=== PATIENT | male | born 1935 | race Caucasian/White ===

== ENCOUNTER 2023-01-15 01:27 | Inpatient (IN) | payer MEDICARE ==
[~2023-01-15] VITALS: Ht 170.2 cm; Wt 88.5 kg
--- NOTE | 2023-01-15 01:20 | NUR ---
RN NOTE RECEIVED ER DIRECT ADMISSION REPORT FROM SANDRA MURCIA ([facility]). ALL PERTINENT ADMISSION INFO REGARDING PT NOTED. WILL WAIT FOR PT TO BE TRANSFERRED TO UNIT AND ADDRESS NEEDS ACCORDINGLY. FASHION ILLUSTRATOR MADE AWARE.
--- NOTE | 2023-01-15 01:45 | NUR ---
RN NOTE RECEIVED PT FROM ER VIA GURRASHID ACCOMPANIED BY 2 ER STAFF AND TRANSFERRED TO BED VIA 2-3 PERSON ASSIST. PT IS A/OX2-3;ON ROOM AIR WITH RESPIRATIONS EVEN AND UNLABORED. COMPREHENSIVE PHYSICAL ASSESSMENT AND PATIENT CARE DONE. SULTANA DE SOUZA AWARE OF PT'S ADMISSION ; AWAITING FOR MD ORDERS. PT FAMILY AT BEDSIDE. CALL LIGHT WITHIN REACH, SAFETY MEASURES IMPLEMENTED, WILL CONTINUE MONITOR AND ASSESS THROUGHOUT THE SHIFT. WILL CARRY OUT MD ORDERS ACCORDINGLY. REED OR WIND INSTRUMENT REPAIRER MADE AWARE. Addendum: 01/15/23 at 0357 by BHAVIK RODRIGUEZ RN PT ON HEPARIN DRIP @1200U/HR BUT WAS HELD BEFORE TRANSFERRED OUT FROM [facility].
[2023-01-15 02:00] VITALS: BP 163/79
[2023-01-15] MEDS ORDERED: Z GUARD REMEDY 4 OZ OINT TP PRN (02:00)
[2023-01-15] MEDS ORDERED: ONDANSETRON HCL/PF 4 MG/2 ML VIAL IVP PRN (02:00)
[2023-01-15] MEDS ORDERED: MAG HYDROX/AL HYDROX/SIMETH 30 ML UDC PO PRN (02:00)
[2023-01-15] MEDS ORDERED: ZOLPIDEM TARTRATE 5 MG TABLET PO PRN (02:00)
[2023-01-15] MEDS ORDERED: MAGNESIUM HYDROXIDE 30 ML UDC PO PRN (02:00)
[2023-01-15] MEDS: IV D5/0.45 NACL 1,000 ML IV PRN ×2 (02:49→23:08)
[2023-01-15 02:55] LABS: EOSINOPHILS % (AUTO) 22.5 % (0.0-6.0); HEMATOCRIT 31 % (39-51); HEMOGLOBIN 9.9 g/dL (13.5-17.5); LYMPHOCYTES # (AUTO) 3.1 K/uL (0.8-4.8); LYMPHOCYTES % (AUTO) 30.9 % (20.0-44.0); MEAN CORPUSCULAR HGB CONC 32 g/dl (31.0-36.0); MEAN CORPUSCULAR VOLUME 65 fL (80-96); MONOCYTES # (AUTO) 0.4 K/uL (0.1-1.30); MONOCYTES % (AUTO) 3.6 % (2.0-12.0); NEUTROPHILS # (AUTO) 4.4 K/uL (1.8-8.9); PLATELET COUNT (AUTO) 268 K/uL (150-450); RED BLOOD CELL COUNT(AUTO) 4.77 MIL/uL (4.5-6.0); WHITE BLOOD COUNT (AUTO) 10.2 K/uL (4.3-11.0)
[2023-01-15 03:02] LABS: CALCIUM, SERUM 9.3 mg/dL (8.5-10.1); CARBON DIOXIDE 30 mmol/L (21-32); CHLORIDE 106 mmol/L (98-107); GLUCOSE 175 mg/dL (74-106); POTASSIUM 3.4 mmol/L (3.5-5.1); SODIUM SERUM 142 mmol/L (136-145); UREA NITROGEN, BLOOD 14 mg/dL (7-18)
--- NOTE | 2023-01-15 03:18 | NUR ---
RN NOTE CRITICAL LAB RECEIVED (S/W JIM) TROPONIN LEVEL 2015. RN ACKNOWLEDGED. WILL NOTIFY SULTANA DE SOUZA. NOTIFIED DR. BARNETT.
--- NOTE | 2023-01-15 03:30 | NUR ---
RN NOTE APTT RESULT CAME OUT 24.7; NOTIFIED SULTANA DE SOUZA (DR. BARNETT) PT STARTED HEPARIN DRIP IN [facility] DOSE RATE OF 1200U/HR. ASKED SULTANA IF TOO CONTINUE DOSE RATE @1200 OR REDO PER HEPARIN ACS PROTOCOL. AWAITING FOR RESPONSE. Addendum: 01/15/23 at 0356 by BHAVIK RODRIGUEZ RN PT'S HEPARIN DRIP WAS HELD BEFORE DC AND TRANSFERRED OUT FROM [facility]. Addendum: 01/15/23 at 0440 by BHAVIK RODRIGUEZ RN CALLBACK RECEIVED FROM SULTANA DE SOUZA () RESTART HEPARIN BASED ON HEAPRIN ACS PROTOCOL. ALSO GAVE ORDER FOR HALDOL 2MG ONE TIME ORDER FOR EXTREME ANXIETY AND RESTLESSNESS AND ATIVAN 2MG Q6H PRN. RN ACKNOWLEDGED. SCALLOPER MADE AWARE.
[2023-01-15 04:00] VITALS: BP 139/69
--- NOTE | 2023-01-15 04:40 | NUR ---
"RN NOTE APTT 24.7; PER HEPARIN DOSING PROTOCOL >95KG | APTT <35 : BOLUS 6000U THEN INCREASE RATE BY 300U/HR MAKING DOSE RATE AT 1500U/HR. WILL CARRY OUT. Addendum: 01/15/23 at 0456 by BHAVIK RODRIGUEZ RN THEN REPEAT APTT AFTER 6HOURS"
[2023-01-15] MEDS ORDERED: LORAZEPAM INJ 2 MG/ML VIAL IV PRN (05:00)
[2023-01-15] MEDS ORDERED: HALOPERIDOL LACTATE INJ 5 MG/ML VIAL IM ONE (05:00)
[2023-01-15] MEDS ORDERED: HEPARIN SODIUM, PORCINE 5000 UNITS/1 ML VIAL IV ONE (05:30)
--- NOTE | 2023-01-15 06:00 | NUR ---
RN NOTE STARTED HEPARIN DRIP PER ACS PROTOCOL @1500U/HR; REPEAT APTT AGTER 6HRS (12NOON).
[2023-01-15] MEDS ORDERED: HEPARIN INFUSION/D5W 500 ML IV ONE (06:02)
[2023-01-15] MEDS: HEPARIN INFUSION/D5W 500 ML IV PRN ×2 (06:09→23:27)
--- NOTE | 2023-01-15 06:53 | NUR ---
RN NOTE PATIENT REMAINS IN ROOM IN NO SIGNS OF RESPIRATORY DISTRESS, PATIENT STILL ON ROOM AIR; WITH 02 SAT >95% SP02. STILL ON NPO. SR-ST ON MONITOR WITHIN THE SHIFT. ON HEPARIN DRIP @1500U/HR; NEXT APTT 12NOON. SAFETY MEASURES IMPLEMENTED, BED IN LOWEST POSITION, LOCKED, SIDE RAILS UP, CALL LIGHT WITHIN REACH. ALL NEEDS AND ORDERS ADDRESSED DURING THE SHIFT. IV ACCESS MAINTAINED INTACT, SECURED AND FLUSHING WELL. ALL DUE MEDS GIVEN ORDERED & SCHEDULED ; PATIENT TOLERATED WELL. RESTRAINTS ON PER PROTOCOL. PATIENT KEPT CLEAN AND COMFORTABLE WITHIN THE SHIFT. PATIENT ENDORSED TO INCOMING SHIFT RN WITH STABLE VITAL SIGN AND FOR CONTINUITY OF CARE.
[2023-01-15 08:00] VITALS: BP 163/78
--- NOTE | 2023-01-15 08:00 | NUR ---
CORD CUTTER OPENING NOTES RECEIVED PATIENT IN BED AWAKE, DAUGHTER AT THE BEDSIDE, NTOED PATIENT RESTLESS, WITH BILATERAL WRIST RESTRAINT, CHECK SKIN PER PROTOCOL. PATIENT REMAINS IN ROOM IN NO SIGNS OF RESPIRATORY DISTRESS, PATIENT STILL ON ROOM AIR; WITH 02 SAT >95% SP02. STILL ON NPO. SR-ST ON MONITOR. NOTED ON HEPARIN DRIP @1500U/HR; NEXT APTT 12NOON. SAFETY MEASURES IMPLEMENTED, BED IN LOWEST POSITION, LOCKED, SIDE RAILS UP, CALL LIGHT WITHIN REACH. IV ACCESS MAINTAINED INTACT, SECURED AND FLUSHING WELL. PATIENT KEPT CLEAN AND COMFORTABLE WITHIN THE SHIFT. PLAN OF CARE CONTINUE.
[2023-01-15] MEDS: POTASSIUM CL. PREMIX PERIPHER. 50 ML IV SCH ×2 (09:21→10:35)
[2023-01-15] MEDS: PANTOPRAZOLE 40 MG VIAL IV SCH (09:21)
--- NOTE | 2023-01-15 09:30 | NUR ---
DR. KUMAR AT THE BEDSIDE, INFORMED OF THE PATIENT'S BLOOD PRESSURE WITH ORDER METOPROL 5MG IV Q6HR PRN, NOTED AND CARRIED OUT.
--- NOTE | 2023-01-15 09:30 | NUR ---
NOTED ON AND OFF JUNCTION RHYTHM DR. CAPELLAN MADE AWARE, NO NEW ORDER.
[2023-01-15] MEDS ORDERED: HALOPERIDOL LACTATE INJ 5 MG/ML VIAL IM PRN (10:00)
[2023-01-15] MEDS ORDERED: METOPROLOL TARTRATE INJ 5 MG/5 ML AMPUL IVP PRN (10:00)
--- NOTE | 2023-01-15 10:30 | NUR ---
DR. CAPELLAN AT THE BEDSIDE, SEEN PATIENT AND TALKED TO THE FAMILY.
[2023-01-15] MEDS ORDERED: NITR0.4T48 SL (10:56)
[2023-01-15] MEDS ORDERED: METF-440 PO (10:56)
[2023-01-15] MEDS ORDERED: EZET10TA16 PO (10:56)
[2023-01-15] MEDS ORDERED: LOSA1TAB39 PO (10:56)
[2023-01-15] MEDS ORDERED: METO25TA3 PO (10:56)
[2023-01-15] MEDS ORDERED: DEXTROSE 50%-WATER 50 ML DISP.SYRIN IV PRN (11:00)
[2023-01-15] MEDS: BLOOD SUGAR DIAGNOSTIC 1 EACH STRIP VI SCH ×3 (11:21→21:48)
--- NOTE | 2023-01-15 11:43 | NUR ---
CORDWAINER/MED RECON HOME MEDICATION INFORMATION UPDATED, INFO. OBTAINED FROM THE FAMILY. PER FAMILY PATIENT DOESN'T TAKE ANY OF THE MEDICATIONS PRESCRIBED SINCE LAST YEAR (PATIENT NON-COMPLIANT). PRIMARY RN MADE AWARE.
[2023-01-15 12:00] VITALS: BP 160/86
--- NOTE | 2023-01-15 13:15 | NUR ---
PATIENT SEEN BY DR. KEENAN WITH RECOMMENDATION TO INFORMED DR. 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
--- NOTE | 2023-01-15 13:20 | NUR ---
CALLED JOSÉ AND INFORMED ABOUT DR. KEENAN'S RECOMMENDATION WITH ORDER TO PUT NEUROCONSULT.NOTED AND CARRIED OUT, INFORMED DR. MONROY
[2023-01-15 16:00] VITALS: BP 155/80
--- NOTE | 2023-01-15 16:30 | NUR ---
PATIENT IS MORE ALERT AND AWAKE, TRIED APPLE SAUCE AND WATER PATIENT ABLE TO SWALLOW WITHOUT COUGHING, PATIENT PUT ON PUREED DIET.
[2023-01-15] MEDS ORDERED: QUETIAPINE FUMARATE 25 MG TABLET PO PRN (17:30)
--- NOTE | 2023-01-15 18:40 | NUR ---
NEW MEDIA STRATEGIST CLOSING NOTES NOTES PATIENT ALERT AND RESPONSIVE, DAUGHTER AT THE BEDSIDE, NOTED PATIENT RESTLESS, WITH BILATERAL WRIST RESTRAINT, CHECK SKIN PER PROTOCOL. PATIENT REMAINS IN ROOM IN NO SIGNS OF RESPIRATORY DISTRESS, PATIENT STILL ON ROOM AIR; WITH 02 SAT >95% SP02. 104 SR-ST ON MONITOR. NOTED ON HEPARIN DRIP @1500U/HR; SAFETY MEASURES IMPLEMENTED, BED IN LOWEST POSITION, LOCKED, SIDE RAILS UP, CALL LIGHT WITHIN REACH. IV ACCESS MAINTAINED INTACT, SECURED AND FLUSHING WELL. PATIENT KEPT CLEAN AND COMFORTABLE WITHIN THE SHIFT. PLAN OF CARE CONTINUE. Addendum: 01/15/23 at 1845 by HUZMA HADDAD LVN [address] WITH FIRST DEGREE AVB
[2023-01-15] MEDS: INSULIN REGULAR, HUMAN 100 UNIT/ML 3 ML VIAL SQ PRN ×2 (18:48→21:21)
--- NOTE | 2023-01-15 18:48 | NUR ---
INSULIN DID NOT ADMINISTER DUE TO PATIENT ONLY ATE 5 % OF THE MEAL AND DAUGHTER AT THE BEDSIDE REFUSED. EDUCATE THE IMPORTANCE OF GIVING THE INSULIN X3, PATIENT'S FAMILY STILL REFUSED.
--- NOTE | 2023-01-15 19:21 | NUR ---
RN OPENING NOTE; RECEIVED PT IN BED AWAKED AOX2-3 WITH CONFUSION,COMBATIVE, FAMILY AT BEDSIDE,ON RM AIR ANKUR WELL SAT 97%,NO SIGN SOB/DISTRESS NOTED,NO COMPLAIN OF PAIN/DISCOMFORT AT THIS TIME,IV ACCESS GIOVANY ML,LAC 20G SL,PATENT AND INTACT,RESTRAIN IN PLACE WITH GOOD CIRCULATION,SAFETY MEASURE IN PLACE,CALL LIGHT WITHIN REACH,WILL CONTINUE TO MONITOR.
[2023-01-15 20:00] VITALS: BP 165/79
[2023-01-15] MEDS: METOPROLOL TARTRATE 25 MG TABLET PO SCH (21:00)
[2023-01-16] VITALS (7 sets, daily range): BP systolic 143–200; BP diastolic 66–120
--- NOTE | 2023-01-16 02:36 | NUR ---
RN NOTE; PATIENT VERY ANXIOUS AND COMBATIVE,INFORM DOC,Won BARNETTWITH A NEW ORDER ATIVAN 1MG IV Q6H PRN.CARRIED OUT.
[2023-01-16] MEDS: LORAZEPAM INJ 2 MG/ML VIAL IV PRN (02:49)
--- NOTE | 2023-01-16 06:19 | NUR ---
RN OPENING NOTE; PT IN BED AWAKED AOX1 CONFUSED,COMBATIVE, FAMILY AT BEDSIDE,ON RM AIR ANKUR WELL SAT 96%,NO SIGN SOB/DISTRESS NOTED,NO SIGN OF PAIN/DISCOMFORT DURING SHIFT,DUE MEDS GIVEN ORDER,ALL NEEDS ATTENDED,IV ACCESS GIOVANY ML,LAC 20G SL,PATENT AND INTACT,RESTRAIN IN PLACE WITH GOOD CIRCULATION,SAFETY MEASURE IN PLACE,CALL LIGHT WITHIN REACH,WILL ENDORSED TO NEXT SHIFT.
--- NOTE | 2023-01-16 07:00 | NUR ---
telegraphic typewriter operator OPENING NOTE; PT IN BED AWAKED AOX1 CONFUSED,COMBATIVE, FAMILY AT BEDSIDE,ON RM AIR ANKUR WELL SAT 96%,NO SIGN SOB/DISTRESS NOTED,NO SIGN OF PAIN/DISCOMFORT DURING SHIFT,IV ACCESS GIOVANY ML,LAC 20G HEPARIN DRIP RUNNING AT 1500 unit/hr, and D5 1/2 NS RUNNING AT 75 ML/HRSL,PATENT AND INTACT,RESTRAIN IN PLACE WITH GOOD CIRCULATION,SAFETY MEASURE IN PLACE,CALL LIGHT WITHIN REACH,WILL CONTINUE TO MONITOR
[2023-01-16] MEDS: BLOOD SUGAR DIAGNOSTIC 1 EACH STRIP VI SCH ×4 (08:12→21:32)
[2023-01-16] MEDS: PANTOPRAZOLE 40 MG VIAL IV SCH (08:14)
[2023-01-16] MEDS: QUETIAPINE FUMARATE 25 MG TABLET PO SCH ×3 (08:14→17:06)
[2023-01-16] MEDS: METOPROLOL TARTRATE 25 MG TABLET PO SCH ×2 (08:15→21:31)
[2023-01-16 08:17] LABS: BASOPHILS # (AUTO) 0.1 K/uL (0.0-0.2); BASOPHILS % (AUTO) 0.6 % (0.0-2.0); EOSINOPHILS % (AUTO) 1.2 % (0.0-6.0); HEMATOCRIT 33 % (39-51); HEMOGLOBIN 10.3 g/dL (13.5-17.5); LYMPHOCYTES # (AUTO) 1.5 K/uL (0.8-4.8); LYMPHOCYTES % (AUTO) 12.2 % (20.0-44.0); MEAN CORPUSCULAR HGB CONC 31 g/dl (31.0-36.0); MEAN CORPUSCULAR VOLUME 67 fL (80-96); MONOCYTES # (AUTO) 1.3 K/uL (0.1-1.30); MONOCYTES % (AUTO) 10.9 % (2.0-12.0); NEUTROPHILS % (AUTO) 75.1 % (43.0-81.0); PLATELET COUNT (AUTO) 265 K/uL (150-450); RED BLOOD CELL COUNT(AUTO) 4.97 MIL/uL (4.5-6.0)
[2023-01-16] MEDS: INSULIN REGULAR, HUMAN 100 UNIT/ML 3 ML VIAL SQ PRN ×4 (08:26→23:44)
[2023-01-16 08:43] LABS: CALCIUM, SERUM 9.1 mg/dL (8.5-10.1); CREATININE 1.1 mg/dL (0.6-1.3); MAGNESIUM 1.8 mg/dL (1.8-2.4); PHOSPHORUS 3.1 mg/dL (2.5-4.9); POTASSIUM 3.7 mmol/L (3.5-5.1)
[2023-01-16 08:50] LABS: THYROID STIMULATING HORMONE 1.647 uIU/mL (0.358-3.74)
--- NOTE | 2023-01-16 08:53 | NUR ---
rn notes: spoke to DR Cardenas BP no iv bp meds also pt is very sleepy,agustin pena,dr Cardenas aware
--- NOTE | 2023-01-16 09:00 | NUR ---
RN NOTES: PTT 49.8 CONTINUE SAME DOSE OF HEPARIN DRIP PER PROTOCOL
--- NOTE | 2023-01-16 10:00 | NUR ---
notified dr Rodarte troponin [id number] made aware with no new order
[2023-01-16] MEDS: IV D5/0.45 NACL 1,000 ML IV PRN (15:01)
[2023-01-16] MEDS: HEPARIN INFUSION/D5W 500 ML IV PRN (16:48)
[2023-01-16] MEDS: CYANOCOBALAMIN 1,000 MCG/ML VIAL IM SCH (17:07)
--- NOTE | 2023-01-16 18:50 | NUR ---
MUD ANALYSIS SUPERVISOR CLOSING NOTES: PATIENT ALERT AND RESPONSIVE, FAMILY AT THE BEDSIDE, NOTED PATIENT , WITH BILATERAL WRIST RESTRAINT, CHECK SKIN PER PROTOCOL. PATIENT REMAINS IN ROOM IN NO SIGNS OF RESPIRATORY DISTRESS, PATIENT STILL ON ROOM AIR; WITH 02 SAT >95% SP02.SR ON MONITOR. NOTED ON HEPARIN DRIP @1500U/HR; SAFETY MEASURES IMPLEMENTED, BED IN LOWEST POSITION, LOCKED, SIDE RAILS UP, CALL LIGHT WITHIN REACH. IV ACCESS MAINTAINED INTACT, SECURED AND FLUSHING WELL. PATIENT KEPT CLEAN AND COMFORTABLE, WILL ENDORSE TO OFFICE MACHINES WIRER RN FOR FRANCO
--- NOTE | 2023-01-16 19:50 | NUR ---
TRAP OPERATOR OPENING NOTE RECEIVED PT IN BED AWAKE, WITH SON AT BEDSIDE. PT A/O X1, CONFUSED, AND COMBATIVE. ON ROOM AIR, AND TOLERATING RA WELL SAT 96%. NO SIGN OF SOB, AND RESPIRATORY DISTRESS NOTED. NO COMPLAIN OF PAIN OR DISCOMFORT AT THIS TIME. IV ACCESS TO RIGHT UA ML, AND LEFT AC 20G SL, IV PATENT AND INTACT. PT HAS RESTRAINTS IN PLACE WITH GOOD CIRCULATION. SAFETY MEASURES IN PLACE: BED IN LOW POSITION, CALL LIGHT WITHIN REACH, SR UP X2. WILL CONTINUE TO MONITOR PT.
[2023-01-16] MEDS: ACETAMINOPHEN 325 MG TABLET PO PRN (22:17)
--- NOTE | 2023-01-16 22:17 | NUR ---
HOSE HANDLER NOTE PT HAS PAIN TO LEFT KNEE. TYLENOL IS GIVEN TO PT.
--- NOTE | 2023-01-16 23:45 | NUR ---
STUNTMAN NOTE PT'S BS: 140. PT'S DAUGHTER BENI REFUSED 2U OF INSULIN TO BE ADMINISTERED TO PT.
[2023-01-17] VITALS: BP 159/83
[2023-01-17 04:00] VITALS: BP 160/83
[2023-01-17] MEDS: LORAZEPAM INJ 2 MG/ML VIAL IV PRN (04:09)
--- NOTE | 2023-01-17 04:10 | NUR ---
RN NOTE PT IS RESTLESS, AGITATED. ATIVAN ADMINISTERED TO PT.
[2023-01-17] MEDS: IV D5/0.45 NACL 1,000 ML IV PRN (04:54)
--- NOTE | 2023-01-17 06:55 | NUR ---
CLOTHES IRONER OPENING NOTE LEFT PT IN BED AWAKE, WITH DAUGHTERS AT BEDSIDE. PT A/O X1, CONFUSED, AND COMBATIVE. ON ROOM AIR, AND TOLERATING RA WELL SAT 96%. NO SIGN OF SOB, AND RESPIRATORY DISTRESS NOTED. NO COMPLAIN OF PAIN OR DISCOMFORT AT THIS TIME. IV ACCESS TO RIGHT UA ML, IV PATENT AND INTACT. PT HAS RESTRAINTS IN PLACE WITH GOOD CIRCULATION. SAFETY MEASURES IN PLACE: BED IN LOW POSITION, CALL LIGHT WITHIN REACH, SR UP X2. WILL ENDORSE PT TO AM SHIFT NURSE FOR FRANCO.
--- NOTE | 2023-01-17 07:10 | NUR ---
RN OPENING NOTES AM SHIFT RECEIVED PT ASLEEP, IN BED ON POSTERIOR SIDE, aPTT READING IS 55.3 NO CHANGE OF HEPARIN NOTED AT THIS TIME PER MD ORDERS AND DOSING ORDERS, PT A&0 X 1, FAMILY PRESENT & DAUGHTERS AT BEDSIDE, SOME CONFUSION NOTED UNABLE TO FOLLOW SIMPLE COMMANDS, RELAXED PEACHFUL AND SLEEPING AT THIS TIME, ON ROOM AIR, TOLERATING RA WELL SAT 98%. NO SIGN OF SOB, NO DISTRESS NOTED, PT IS CALM , NO COMPLAIN OF PAIN OR DISCOMFORT AT THIS TIME. IV ACCESS TO RIGHT UA ML, IV PATENT AND INTACT. PT HAS RESTRAINTS IN PLACE WITH GOOD CIRCULATION NOTED ON ALL EXTREMETIES CAP REFILL IS LESS THAN 3. SAFETY MEASURES IN PLACE: BED IN LOW POSITION, ALL BED WHEELS LOCKED, CALL LIGHT WITHIN REACH, WILL MONITOR CLOSELY BS = 170 INSULIN GIVEN PER SLIDING SCALE.
[2023-01-17 08:00] VITALS: BP 158/82
[2023-01-17] MEDS: INSULIN REGULAR, HUMAN 100 UNIT/ML 3 ML VIAL SQ PRN (08:09)
[2023-01-17] MEDS: BLOOD SUGAR DIAGNOSTIC 1 EACH STRIP VI SCH ×4 (08:10→21:52)
[2023-01-17 08:19] LABS: CALCIUM, SERUM 8.7 mg/dL (8.5-10.1); POTASSIUM 3.5 mmol/L (3.5-5.1)
[2023-01-17] MEDS: PANTOPRAZOLE 40 MG VIAL IV SCH (08:20)
[2023-01-17] MEDS: QUETIAPINE FUMARATE 25 MG TABLET PO SCH ×4 (08:20→20:27)
[2023-01-17] MEDS: CYANOCOBALAMIN 1,000 MCG/ML VIAL IM SCH (08:20)
[2023-01-17] MEDS: METOPROLOL TARTRATE 25 MG TABLET PO SCH ×2 (08:21→20:44)
[2023-01-17 08:25] LABS: ALBUMIN 3.7 g/dL (3.4-5.0); BILIRUBIN,TOTAL 1.8 mg/dL (0.2-1.0); TOTAL PROTEIN, SERUM 5.9 g/dL (6.4-8.2)
[2023-01-17] MEDS ORDERED: PANTOPRAZOLE 40 MG/PACK PACK PO SCH (09:00)
--- NOTE | 2023-01-17 10:27 | NUR ---
RN NOTES FAMILY REFUSED TO SIGN CONSENT FOR THE MRI, EDUCATED FAMILY AND CONSEQUENCES OF NOT AUTHORIZING PROCEDURE FAMILY STILL REFUSED, NEUROLOGIST AND MD EDUCATED FAMILY ON IMPORTANCE OF CARE MANAGEMENT AND REASONING FOR ALL MEDICATION ORDERS, LAB ORDERS , MRI , SCANS, AND CARE HOWEVER FAMILY STILL REFUSED , WILL CONTINUE TO MONITOR PATIENT AT THIS TIME, HEP DRIP INTACT IV SITE INTACT, RESTRAINTS IN PLACE, PT TURNED AND REPOSITIONED WITH PILLOW UNDER LEFT KNEE AND COLD PACK THERAPY FOR ACHE AND SWOLLENESS NOTED FROM THE PREVIOUS FALL.
[2023-01-17] MEDS: HEPARIN INFUSION/D5W 500 ML IV PRN (10:54)
[2023-01-17] MEDS ORDERED: HALOPERIDOL LACTATE INJ 5 MG/ML VIAL IM PRN (11:00)
--- NOTE | 2023-01-17 11:44 | NUR ---
PER RN NICK, PT REFUSING EXAM
[2023-01-17 12:00] VITALS: BP 149/68
[2023-01-17] MEDS: GLUCERNA SHAKE 237 ML CAN PO SCH ×2 (12:32→17:05)
[2023-01-17] MEDS: ACETAMINOPHEN 325 MG TABLET PO PRN ×2 (13:54→20:27)
[2023-01-17] MEDS: HYDROCODONE/APAP 5/325MG TABLET PO PRN (13:54)
[2023-01-17 16:00] VITALS: BP 136/64
--- NOTE | 2023-01-17 18:44 | NUR ---
RN NOTES FAMILY WITH PT DURING ENTIRE SHIFT, PT HAS PAIN IN LEFT KNEE, GIVEN ICE PACKS, PILLOWS, AND PAIN MEDICATION EFFECTIVE, FAMILY REFUSED INSULIN SHOT FOR BS = 161 LEVEL EDUCATED CONSEQUENCES, ENCOURAGED PT TO EAT DINNER, REPOSITIONED PT FOR COMFORT, ALL SAFETY MEASURES IN PLACE ALL BED WHEELS LOCKED, BED LOW TO FLOOR CALL LIGHT IN REACH AND FAMILY KNOWS HOW TO USE IT AND MAKES ALL NEEDS KNOWN.
--- NOTE | 2023-01-17 19:30 | NUR ---
MACHINE APPLICATOR CEMENTER OPENING NOTE RECEIVED PATIENT IN BED, WITH HOB ELEVATED, ALERT AND ORIENTED TO SELF, WITH FAMILY AT BEDSIDE. AFEBRILE AND NOT IN ANY FORM OF ACUTE DISTRESS. BREATHING EVEN AND NON LABORED. NO C/O PAIN OR DISCOMFORT AT THIS TIME. ON TELE MONITORING. WITH IV ACCESS ON GIOVANY MIDLINE RUNNING WITH D5 1/2NS AT 75ML/HR AND HEPARIN DRIP OF 1500U/HR., NO ACTIVE BLEEDING NOTED. WITH BILATERAL SOFT WRIST RESTRAINTS,NOTED WITH INTACT SKIN AND GOOD CIRCULATION. SAFETY MEASURES IN PLACE. KEPT BED IN LOCKED AND IN LOW POSITION. SIDE RAILS UP X2. CALL LIGHT WITHIN EASY REACH.
[2023-01-17 20:00] VITALS: BP 137/75
[2023-01-17] MEDS: *INSULIN REGULAR(HUMULIN R)HUM 100 UNIT/ML VIAL SQ PRN (21:54)
[2023-01-18] VITALS: BP 137/75
[2023-01-18] MEDS: HEPARIN INFUSION/D5W 500 ML IV PRN ×2 (02:58→20:47)
[2023-01-18 04:00] VITALS: BP 159/71
--- NOTE | 2023-01-18 06:30 | NUR ---
PROFESSOR SCULPTURE CLOSING NOTE PATIENT IN BED, WITH HOB ELEVATED, ASLEEP BUT EASY TO AROUSE, WITH SON AND PRIVATE NURSE AT BEDSIDE. AFEBRILE AND NOT IN ANY FORM OF ACUTE DISTRESS. BREATHING EVEN AND NON LABORED. NO C/O PAIN OR DISCOMFORT THROUGHOUT THE SHIFT. ON TELE MONITORING WITH CURRENT READING OF ST 104 WITH OCCASIONAL PVCS AND 1ST DEGREE AV BLOCK. WITH IV ACCESS ON GIOVANY MIDLINE RUNNING WITH D5 1/2NS AT 75ML/HR AND HEPARIN DRIP OF 1500U/HR., NO ACTIVE BLEEDING NOTED. WITH BILATERAL SOFT WRIST RESTRAINTS,NOTED WITH INTACT SKIN AND GOOD CIRCULATION. MONITORED FOR ANY S/SX. OF HYPO/HYPERGLYCEMIA. MEDICATED ORDERED. SAFETY MEASURES IN PLACE. KEPT BED IN LOCKED AND IN LOW POSITION. SIDE RAILS UP X2. CALL LIGHT WITHIN EASY REACH. ALL NURSING NEEDS ATTENDED. ENDORSED TO INCOMING SHIFT FOR CONTINUITY OF CARE.
[2023-01-18] MEDS: BLOOD SUGAR DIAGNOSTIC 1 EACH STRIP VI SCH ×4 (06:45→20:49)
[2023-01-18] MEDS: INSULIN REGULAR, HUMAN 100 UNIT/ML 3 ML VIAL SQ PRN ×3 (06:47→21:14)
[2023-01-18 08:00] VITALS: BP 164/98
[2023-01-18] MEDS: GLUCERNA SHAKE 237 ML CAN PO SCH ×3 (08:00→16:57)
[2023-01-18] MEDS: ACETAMINOPHEN 325 MG TABLET PO PRN (09:23)
[2023-01-18] MEDS: QUETIAPINE FUMARATE 25 MG TABLET PO SCH ×4 (09:35→20:48)
[2023-01-18] MEDS: HYDROCODONE/APAP 5/325MG TABLET PO PRN (09:38)
[2023-01-18] MEDS: CYANOCOBALAMIN 1,000 MCG/ML VIAL IM SCH (09:38)
[2023-01-18] MEDS: METOPROLOL TARTRATE 25 MG TABLET PO SCH ×2 (09:39→20:48)
[2023-01-18] MEDS: PANTOPRAZOLE 40 MG/PACK PACK PO SCH (09:39)
--- NOTE | 2023-01-18 12:36 | NUR ---
RN NOTES FAMILY REQUESTING TO MANAGE PAIN BY HOLISTIC MEASURES AND TO TRY TO USE OTHER METHODS TO MANAGE THE PAIN IN HIS LEFT KNEE, ICE PACKS PROVIDED, REPOSITIONING OFTEN, PILLOWS ADMIN TO HELP ELEVATE THE KNEE, SITE IS INFLAMED , RED, AND SWOLLEN, TENDER TO TOUCH, ADVISED TO KEEP ANY PRESSURE & WEIGHT OFF OF KNEE AT THIS TIME, PT CLEANED BRIDGETTE AREA AND REPOSITIONED FOR COMFORT, AFTER EDUCATING FAMILY ON PAIN MEDICATIONS AUTHORIZED TO GIVE THE NORCO AND AM MEDICATIONS, PO WITH APPLE SAUCE, NO ASPIRATION NOTED HOB LIFTED TO A SEMI FOWLERS POSITION AND PT ABLE TO SWALLOW PILLS WHOLE WITH APPLE SAUCE, NORCO EFFECTIVE AND PT RESTING PEACEFULLY WITH ONE DAUGHTER AT BEDSIDE AT THIS TIME. ALL SAFETY MEASURES IN PLACE, BED LOW TO FLOOR, ALL WHEELS ARE LOCKED, MONITORING CLOSELY FOR ANY CHANGES OF CONDITION.
--- NOTE | 2023-01-18 12:40 | NUR ---
RN NOTES DUE TO PATIENT BEING COMFORTABLE AND SEMI ASLEEP FAMILY IS REQUESTING TO REFUSE THE VS AND THE BS TO BE TAKEN AT THIS TIME BETWEEN 11;30 AM AND AT THIS TIME, WILL RESPECT WISHES AND TAKE THE VS AND THE BS IN APPROX 30 MINUTES TO ALLOW PT TO REST UP.
[2023-01-18 16:00] VITALS: BP 164/98
--- NOTE | 2023-01-18 18:38 | NUR ---
RN CLOSING NOTES FOR DAY SHIFT PATIENT AWAKE A/O X 2 IN BED, HOB ELEVATED SEMI FOWLERS, BOTH DAUGHTERS AT BED SIDE, AFEBRILE, NO SOB, NO ACUTE DISTRESS, RESP ARE AT 19, BREATHING IS EVEN & UN-LABORED. ON TELE MONITORING WITH CURRENT READING OF ST 98 , OCCASIONAL PVCS NOTED AND 1ST DEGREE AV BLOCK. IV ACCESS ON GIOVANY MIDLINE RUNNING WITH D5 1/2NS AT 75ML/HR AND HEPARIN DRIP OF 1500U/HR., NO ACTIVE BLEEDING NOTED, NO ADVERSE SIDE EFFECTS NOTED, BI-LATERAL SOFT WRIST RESTRAINTS, NOTED WITH INTACT SKIN & GOOD CIRCULATION LESS THAN 3 SECONDS ON ALL EXTREMETIES, PT RESPONDS TO COUCH AND ENJOYS HOLDING OF THE HAND, MONITORED FOR ANY S/SX. OF HYPO/HYPERGLYCEMIA NONE NOTED ALL BS TAKEN AND INSULIN GIVEN ACCORDING THE SLIDING SCALE, SAFETY MEASURES IN PLACE. - BED IN LOW POSITION, ALL WHEELS LOCKED , SIDE RAILS UP X2 , CALL LIGHT WITHIN EASY REACH, ALL NURSING NEEDS ATTENDED TO IN A TIMELY MANNER, WILL . ENDORSE TO ONCOMING SHIFT FOR CONTINUITY OF CARE AND NEEDS.
--- NOTE | 2023-01-18 19:30 | NUR ---
PATIENT AWAKE IN BED. FAMILY AT BEDSIDE. A/O X 2. NO SOB ON RA. ON PUREED DIET. IV ACCESS ON GIOVANY MIDLINE INFUSING D5 1/2NS AT 75ML/HR AND HEPARIN DRIP OF 1500U/HR., NO ACTIVE BLEEDING NOTED. BI-LATERAL SOFT WRIST RESTRAINTS, NOTED WITH INTACT SKIN & GOOD CIRCULATION. SAFETY MEASURES IN PLACE. HOB ELEVATED. WILL CONTINUE PLAN OF CARE.
[2023-01-18] MEDS: IBUPROFEN 400 MG TABLET PO PRN (19:48)
[2023-01-18 20:00] VITALS: BP_SYST 144; BP_SYST 99; BP_DIAS 51; BP_DIAS 75
[2023-01-19] VITALS (8 sets, daily range): BP systolic 143–193; BP diastolic 47–88
[2023-01-19] MEDS: IV D5/0.45 NACL 1,000 ML IV PRN ×2 (02:23→17:13)
--- NOTE | 2023-01-19 06:52 | NUR ---
PATIENT AWAKE IN BED. FAMILY AND CAREGIVER AT BEDSIDE. A/O X 2. NO SOB ON RA. ON PUREED DIET. IV ACCESS ON GIOVANY MIDLINE INFUSING D5 1/2NS AT 75ML/HR AND HEPARIN DRIP OF 1500U/HR., NO ACTIVE BLEEDING NOTED. BI-LATERAL SOFT WRIST RESTRAINTS, NOTED WITH INTACT SKIN & GOOD CIRCULATION. SAFETY MEASURES MAINTAINED. HOB ELEVATED. WILL ENDORSE TO NEXT NURSE ON DUTY FOR CONTINUITY OF CARE.
[2023-01-19 06:53] LABS: BILIRUBIN,URINE NEGATIVE (NEGATIVE); COLOR,URINE YELLOW (YELLOW); LEUKOCYTE ESTERASE ,URINE NEGATIVE (NEGATIVE); NITRITE, URINE NEGATIVE (NEGATIVE); PROTEIN,URINE NEGATIVE (NEGATIVE); UGLUCOSE NEGATIVE (NEGATIVE)
[2023-01-19 07:18] LABS: BASOPHILS % (AUTO) 0.6 % (0.0-2.0); EOSINOPHILS % (AUTO) 3.5 % (0.0-6.0); HEMATOCRIT 28 % (39-51); HEMOGLOBIN 9.1 g/dL (13.5-17.5); LYMPHOCYTES % (AUTO) 13.8 % (20.0-44.0); MEAN CORPUSCULAR HGB CONC 33 g/dl (31.0-36.0); MEAN CORPUSCULAR VOLUME 65 fL (80-96); MONOCYTES # (AUTO) 0.8 K/uL (0.1-1.30); MONOCYTES % (AUTO) 10.1 % (2.0-12.0); NEUTROPHILS # (AUTO) 5.5 K/uL (1.8-8.9); PLATELET COUNT (AUTO) 227 K/uL (150-450); RED BLOOD CELL COUNT(AUTO) 4.24 MIL/uL (4.5-6.0); WHITE BLOOD COUNT (AUTO) 7.6 K/uL (4.3-11.0)
[2023-01-19 07:25] LABS: CALCIUM, SERUM 8.5 mg/dL (8.5-10.1); CARBON DIOXIDE 30 mmol/L (21-32); CHLORIDE 103 mmol/L (98-107); CREATININE 0.9 mg/dL (0.6-1.3); GLUCOSE 174 mg/dL (74-106); PHOSPHORUS 2.7 mg/dL (2.5-4.9); SODIUM SERUM 140 mmol/L (136-145); UREA NITROGEN, BLOOD 9 mg/dL (7-18)
--- NOTE | 2023-01-19 07:54 | NUR ---
HR CLERK OPENING NOTE PATIENT AWAKE IN BED. DAUGHTER AT BEDSIDE. A/O X 2. NO SOB ON RA. ON PUREED DIET. IV ACCESS ON GIOVANY MIDLINE INFUSING D5 1/2NS AT 75ML/HR AND HEPARIN DRIP OF 1500U/HR., NO ACTIVE BLEEDING NOTED. BI-LATERAL SOFT WRIST RESTRAINTS, NO SKIN OR CIRCULATION ISSUES NOTED AT THIS TIME. ALL SAFETY MEASURES MAINTAINED. HOB ELEVATED.BED ALARM ON
[2023-01-19] MEDS: QUETIAPINE FUMARATE 25 MG TABLET PO SCH ×2 (08:00→12:00)
[2023-01-19] MEDS: GLUCERNA SHAKE 237 ML CAN PO SCH (08:00)
[2023-01-19] MEDS: BLOOD SUGAR DIAGNOSTIC 1 EACH STRIP VI SCH ×4 (08:03→22:00)
[2023-01-19] MEDS ORDERED: METOPROLOL SUCCINATE 25 MG TAB.SR.24H PO SCH (09:00)
[2023-01-19] MEDS: PANTOPRAZOLE 40 MG/PACK PACK PO SCH (09:00)
[2023-01-19] MEDS ORDERED: EZETIMIBE 10 MG TABLET PO SCH (09:00)
--- NOTE | 2023-01-19 09:27 | NUR ---
rn note pt family refuses seroquel at this time
[2023-01-19] MEDS: CYANOCOBALAMIN 1,000 MCG/ML VIAL IM SCH (09:38)
[2023-01-19] MEDS: METOPROLOL TARTRATE 25 MG TABLET PO SCH ×2 (09:39→21:00)
[2023-01-19] MEDS: hydrALAZINE HCL IV 20 MG VIAL IV PRN ×2 (09:39→16:50)
[2023-01-19] MEDS: IBUPROFEN 400 MG TABLET PO PRN ×2 (10:30→17:41)
[2023-01-19] MEDS: POTASSIUM CHLORIDE 20 MEQ POWDER PACKET PO SCH ×3 (11:10→12:32)
--- NOTE | 2023-01-19 12:29 | NUR ---
RN NOTE OF PT FAMILY RESUSAL OF INSULIN COVERAGE, PROTONIX, SEROQUEL, ZETIA.
[2023-01-19] MEDS: ACETAMINOPHEN 325 MG TABLET PO PRN (12:32)
--- NOTE | 2023-01-19 13:14 | NUR ---
NIHSS COMPLETED SCORE 16
--- NOTE | 2023-01-19 13:19 | NUR ---
CODE STROKE ACTIVATED
--- NOTE | 2023-01-19 13:21 | NUR ---
STROKE TEAM ARRIVED
--- NOTE | 2023-01-19 13:22 | NUR ---
BLOOD TESTS DONE
--- NOTE | 2023-01-19 13:23 | NUR ---
BLOOD SUGAR CHECK 193
--- NOTE | 2023-01-19 13:25 | NUR ---
SENT PT TO CT SCAN
--- NOTE | 2023-01-19 13:30 | NUR ---
CALLED NEUROLOGIOST VIA TE[facility]HE[facility]
--- NOTE | 2023-01-19 13:34 | NUR ---
PT BACK FROM CT SCAN
[2023-01-19 13:39] LABS: BASOPHILS # (AUTO) 0.1 K/uL (0.0-0.2); BASOPHILS % (AUTO) 0.8 % (0.0-2.0); EOSINOPHILS % (AUTO) 2.8 % (0.0-6.0); HEMATOCRIT 31 % (39-51); HEMOGLOBIN 9.6 g/dL (13.5-17.5); LYMPHOCYTES # (AUTO) 1.5 K/uL (0.8-4.8); LYMPHOCYTES % (AUTO) 17.7 % (20.0-44.0); MEAN CORPUSCULAR HGB CONC 31 g/dl (31.0-36.0); MEAN CORPUSCULAR VOLUME 67 fL (80-96); MONOCYTES # (AUTO) 0.8 K/uL (0.1-1.30); MONOCYTES % (AUTO) 9.2 % (2.0-12.0); NEUTROPHILS # (AUTO) 6.1 K/uL (1.8-8.9); NEUTROPHILS % (AUTO) 69.5 % (43.0-81.0); PLATELET COUNT (AUTO) 274 K/uL (150-450); WHITE BLOOD COUNT (AUTO) 8.7 K/uL (4.3-11.0)
[2023-01-19 13:45] LABS: CALCIUM, SERUM 8.8 mg/dL (8.5-10.1); CARBON DIOXIDE 29 mmol/L (21-32); CHLORIDE 102 mmol/L (98-107); GLUCOSE 215 mg/dL (74-106); POTASSIUM 3.9 mmol/L (3.5-5.1); SODIUM SERUM 138 mmol/L (136-145); UREA NITROGEN, BLOOD 8 mg/dL (7-18)
--- NOTE | 2023-01-19 13:50 | NUR ---
CT RESULT RECEIVED
[2023-01-19] MEDS: HEPARIN INFUSION/D5W 500 ML IV PRN (13:51)
--- NOTE | 2023-01-19 13:52 | NUR ---
XRAY DONE AT BEDSIDE
--- NOTE | 2023-01-19 13:57 | NUR ---
[facility] NEUROLOGIST MD SUZI MITCHELL ASSESSED PT, INFORMED HIM RESULTS OF CT SCAN. WITH NEW ORDERS TO DC HEPARIN DRIP, TRANSFER TO ICU, BP GOAL 120/60, IF SCAN IS STABLE CAN RESUME ASPIRIN 81MG, CT SCAN OF THE BRAIN WITH NO CONTRAST TOMORROW 01/20/2023 AND [address]CA OF HEAD AND NECK WITH CONTRAST. ORDERS NOTED AND CARRIED OUT. INFORMED SAMPLE WORKER OF ICU TRANSFER FOR FUTHER MONTIORING.PRIMARY MD AWARE. PT FAMILY AT BEDSIDE
--- NOTE | 2023-01-19 14:20 | NUR ---
ICU OPENING NOTE: RECEIVED PT FROM DAISY FLORES. PT IS AWAKE ALERT WITH PERIODS OF CONFUSION. NOTED WITH ANGER AND TRYING TO PULL OUT SCREEN PRINTING STENCIL PREPARER AND B/P CUFF. APPLIED RESTRAIN ORDERED. REORIENTED PT TO ROOM AND CALL LIGHT AND NOT TO PULL OUT. GCS [id number], PERRLA WITH BILATERAL 3MM. RIGHT SIDE LIMBS POWER 4/5, LEFT SIDE 2-3/5. ICE CREAM TRUCK DRIVER SHOWED SR HR 80/MIN. BP 190/75MMHG. SPO2 95% RA. WILL CONTINUE MONITORING AND CARE.
--- NOTE | 2023-01-19 14:20 | NUR ---
rn note gave report to Sherman FLORES. transferred via ACLS protocol.
--- NOTE | 2023-01-19 17:20 | NUR ---
RN NOTE: PT REQUEST FOR WATER PO INTAKE. RN SWALLOW TEST. GAVE PATIENT SMALL AMOUNT OF PUDDING, ABLE TO TOLERATE WITH N0 ASPIRATION NOTED. NO COUGH. GAVE WATER IN SMALL AMOUNT . WITH NO ASPIRATION NOTED. NO COUGH. MADE MD WITH AWARE WITH ORDER
[2023-01-19] MEDS: HYDROCORTISONE 0.5% CREAM 28.35 GM TUBE TP SCH (17:34)
[2023-01-19] MEDS: *INSULIN REGULAR(HUMULIN R)HUM 100 UNIT/ML VIAL SQ PRN (17:50)
--- NOTE | 2023-01-19 18:20 | NUR ---
RN CLOSING NOTE: PER MD TRANSFER BACK TO ROOM 109. ASSISTED BY 2 RN. GAVE REPORT AT BEDSIDE TO DAISY FLORES. PT IS AOX1 WITH PERIODS OF CONFUSION. FAMILY AT BEDSIDE. GAVE PRN PAIN MEDICATION ORDERED. NO S/S OF PAIN OR DISCOMFORT AT THIS TIME. PT EYES CLOSE. ABLE TO WAKE UP AND ANSWER SIMPLE QUESTIONS. IV LINE INTACT AND PATENT. PT IN STABLE CONDITION. ENDORSE PT ON COMFORT MEASURES.
--- NOTE | 2023-01-19 19:24 | NUR ---
RN CLOSING NOTE: RECEIVED REPORT FROM [facility] KNAPSACK SPRAYER.PT IS ALERT AND ORIENTED X1 WITH PERIODS OF CONFUSION. FAMILY AT BEDSIDE.NO S/S OF PAIN OR DISCOMFORT AT THIS TIME. R UPPER ARM MIDLINE, IV INTACT, PATENT AND FLUSHING WELL. RESTRAINTS OFF AT THIS TIME DUE TO FAMILY BEING PRESENT AT THIS TIME. PT IS COMFORT MEASURES ONLY. ALL SAFETY MEASURES IN PLACE. CALL LIGHT WITHIN REACH. BED LOCKED AT LOWEST POSITION.SIDE RAILS UP X2. BED ALARM ON. ENDORSED TO COURIER DELIVERY DRIVER RN FOR CONTUITY OF CARE
--- NOTE | 2023-01-19 19:45 | NUR ---
MS RN OPENING NOTE PATIENT AWAKE IN BED, A/O X 1, CONFUSED. FAMILY AT BEDSIDE. PT STABLE ON RA, NO S/S OF DISTRESS OR SOB NOTED, BREATHING EVEN AND UNLABORED. GIOVANY MIDLINE INTACT AND INFUSING @ 75 ML/HR. RESTRAINTS OFF AT THIS TIME PER FAMILY REQUEST. TOOTH CUTTER PINION PROVIDED HYGIENE CARE. SAFETY MEASURES IN PLACE: CALL LIGHT WITHIN REACH, SIDE RAILS UP X 3, BED LOCKED IN LOWEST POSITION, HOB ELEVATED, BED ALARM ON. WILL CONTINUE TO MONITOR PATIENT
--- NOTE | 2023-01-19 21:59 | NUR ---
RN NOTE PATIENT A LITTLE RESTLESS, PER FAMILY PATIENT THINKS HE'S DYING AND MAKING APOLOGIES TO FAMILY, ETC. PER FAMILY DO NOT GIVE LOPRESSOR 25 MG PO. PER FAMILY DO NOT DO ACCU CHECK AT THIS TIME
[2023-01-19] MEDS: MORPHINE SULFATE INJ 2 MG/ML DISP.SYRIN IV PRN (23:17)
--- NOTE | 2023-01-19 23:17 | NUR ---
RN NOTE PATIENT CONTINUES TO BE RESTLESS, AGITATED AND KICKING AROUND. PER DAUGHTER DPOA AND SON OKAY TO GIVE MORPHINE FOR PAIN
--- NOTE | 2023-01-20 00:08 | NUR ---
RN NOTE PATIENT CONTINUES TO BE RESTLESS, AGITATED, KICKING AND YELLING DESPITE MORPHINE GIVEN. PATIENT ON BILATERAL SOFT WRIST RESTRAINTS, FAMILY CAREGIVER AT BEDSIDE. CALLED SON RAMANDEEP TO ASK IF IT'S OKAY TO GIVE ATIVAN IF I GET ORDERED FROM MD, PER SON OKAY TO GIVE ATIVAN
[2023-01-20] MEDS ORDERED: LORAZEPAM INJ 2 MG/ML VIAL IV ONE (00:30)
--- NOTE | 2023-01-20 00:30 | NUR ---
RN NOTE ONE TIME DOSE OF ATIVAN IV 0.5 MG ORDERED BY AXMINSTER WEAVER MD. MEDICATION GIVEN ORDERED, WASTED MED WITH SANDRA PINZON. WILL CONTINUE TO MONITOR
[2023-01-20 04:00] VITALS: BP 163/73
[2023-01-20] MEDS: hydrALAZINE HCL IV 20 MG VIAL IV PRN ×2 (04:49→08:35)
--- NOTE | 2023-01-20 05:24 | NUR ---
RN NOTE PATIENT'S SPO2: 89%, PATIENT SLEEPING COMFORTABLY, DOESN'T APPEAR TO BE STRUGGLING TO BREATHE OR IN DISTRESS. ASKED SON AT BEDSIDE IF HE WOULD LIKE PATIENT TO BE PLACED ON O2 VIA NASAL CANNULA, EXPLAINED RISKS AND BENEFITS, SON REFUSED AT THIS TIME
[2023-01-20] MEDS: IV D5/0.45 NACL 1,000 ML IV PRN ×2 (06:55→21:05)
--- NOTE | 2023-01-20 07:20 | NUR ---
MS RN OPENING NOTE PATIENT AWAKE IN BED, A/O X 1, CONFUSED. FAMILY AT BEDSIDE. PT STABLE ON RA, NO S/S OF DISTRESS OR SOB NOTED, BREATHING EVEN AND UNLABORED. GIOVANY MIDLINE INTACT AND INFUSING D5 1/2 NS @ 75 ML/HR. RESTRAINTS ON AT THIS TIME . SAFETY MEASURES IN PLACE: CALL LIGHT WITHIN REACH, SIDE RAILS UP X 3, BED LOCKED IN LOWEST POSITION, HOB ELEVATED, BED ALARM ON. FAMILY CONTINUE TO REQUEST COMFORT MEASURES.WILL CONTINUE TO MONITOR PATIENT
--- NOTE | 2023-01-20 07:37 | NUR ---
MS RN CLOSING NOTE PATIENT AWAKE IN BED, A/O X 1, CONFUSED, FAMILY AT BEDSIDE. PT STABLE ON RA, NO S/S OF DISTRESS OR SOB NOTED, BREATHING EVEN AND UNLABORED, SPO2 89% THIS AM BUT PATIENT NOT HAVING DIFFICULTY BREATHING, ASKED SON IF I SHOULD PLACE PATIENT ON O2 BUT SON REFUSED. GIOVANY MIDLINE INTACT AND INFUSING @ 75 ML/HR. RESTRAINTS ON THIS SHIFT D/T PATIENT AGITATION AND RESTLESSNESS. PATIENT NEEDS MET THROUGHOUT SHIFT, PT TURNED AND REPOSITIONED. FAMILY REFUSED CTA OF CAROTID AND BRAIN AND CT HEAD. FAMILY ALSO REFUSED LOPRESSOR AND ACCU CHECKS THIS SHIFT. PER DAUGHTER DPOA AND SON, OKAY TO GIVE MORPHINE AND ATIVAN, AFTER ATIVAN PATIENT WAS MUCH MORE CALM. SAFETY MEASURES IN PLACE: CALL LIGHT WITHIN REACH, SIDE RAILS UP X 3, BED LOCKED IN LOWEST POSITION, HOB ELEVATED, BED ALARM ON. ENDORSED TO DAYSHIFT RN FOR CONTINUITY OF CARE
[2023-01-20 08:00] VITALS: BP 169/87
[2023-01-20] MEDS: BLOOD SUGAR DIAGNOSTIC 1 EACH STRIP VI SCH ×4 (08:03→22:11)
[2023-01-20] MEDS: HYDROCORTISONE 0.5% CREAM 28.35 GM TUBE TP SCH ×2 (08:52→17:37)
[2023-01-20] MEDS: CYANOCOBALAMIN 1,000 MCG/ML VIAL IM SCH (09:00)
[2023-01-20] MEDS: LOSARTAN/HCTZ 50-12.5MG/ 1 EA TABLET PO SCH (09:00)
[2023-01-20] MEDS: PANTOPRAZOLE 40 MG/PACK PACK PO SCH (09:00)
[2023-01-20] MEDS: METOPROLOL TARTRATE 25 MG TABLET PO SCH ×2 (09:00→21:20)
--- NOTE | 2023-01-20 09:00 | NUR ---
pt is sleepy and altered mental status unable to give po meds, dr Paul aware, family continue to request to keep him comfort, no s/s of pain or discomfort
--- NOTE | 2023-01-20 09:49 | NUR ---
rechecked bp 126/62
[2023-01-20] MEDS ORDERED: LORAZEPAM INJ 2 MG/ML VIAL IV PRN (14:00)
--- NOTE | 2023-01-20 14:00 | NUR ---
RN NOTES: PT IS VERY AGITATED PULLING IV TUBING AND RESTLESS DAUGHTER REQUESTED TO GIVE ATIVAN SPOKE TO DR ROBERTS HE SAID DAUGHTER WAS REFUSING ATIVAN SHE SAID NO HE NEED TO HAVE A DOSE NOW WITH ORDER OF ATIVAN PRN 0.5 MG IV, DOSE ADMINISTERED
[2023-01-20 16:00] VITALS: BP 134/88
--- NOTE | 2023-01-20 17:30 | NUR ---
RN NOTES: DAUGHTER SAID SHE WANTS HER DAD TO RESTART SEROQUEL 25 MG TO GIVE 1/4 TABLET EVERY 6 HOURS, PT NOTED VERY RESTLESS, AGITATED AND HALLUCINATED SPOKE TO DR ROBERTS WITH NEW ORDER, SEROQUEL GIVEN PO ORDERED
[2023-01-20] MEDS: QUETIAPINE FUMARATE 25 MG TABLET PO SCH ×2 (17:37→23:28)
--- NOTE | 2023-01-20 19:15 | NUR ---
RN CLOSING NOTE: PT IS AOX1 WITH PERIODS OF CONFUSION. FAMILY AT BEDSIDE. GAVE PRN PAIN MEDICATION ORDERED. NO S/S OF PAIN OR DISCOMFORT AT THIS TIME. ABLE TO WAKE UP AND ANSWER SIMPLE QUESTIONS. NOTED MIDLINE PULLED OUT.SALINE LOCK USING GAUGE 22 INSERTED TO RIGHT FOREARM. PT IN STABLE CONDITION. ENDORSE PT ON COMFORT MEASURES TO CASH APPLICATION REPRESENTATIVE RN
--- NOTE | 2023-01-20 19:59 | NUR ---
MS RN OPENING NOTES; RECEIVED PATIENT AWAKE IN BED ACCOMPANIED BY FAMILY, BED IN LOW POSITION CALL LIGHTS WITHIN REACH, NO COMPLAIN OF PAIN AND DISCOMFORT AT THIS TIME, ON ROOM AIR SATURATING WELL, NO SOB WAS OBSERVED, PATIENT IS A/O X1 CONFUSED , COMBATIVE, ON BILATERAL SOFT WRIST RESTRAINT, IV LINE AT LEFT HAND#22 WITH ONGOING D5 1/2 NSS@75ML//HR INFUSING WELL, ON COMFORT MEASURE, KEPT CLEAN AND DRY ALL NEEDS MET WILL CONTINUE TO MONITOR.
[2023-01-20 20:00] VITALS: BP 156/94
[2023-01-20] MEDS: *INSULIN REGULAR(HUMULIN R)HUM 100 UNIT/ML VIAL SQ PRN (22:10)
--- NOTE | 2023-01-21 01:27 | NUR ---
RN NOTES Spoke with daughter Lourdes about family's concern about too many different medications and different narcotics. Requested not to give any narcotics and to adjust seroquel to every 4hrs . She also stated tylenol and motrin should be enough for his pain. Explained to her that at night there's only an reconciliation accountant MD and might not change anything but assured her that will let reconciliation accountant MD know and narcotics will not be given until family says it is ok to give. Filemon, primary RN made aware; messaged reconciliation accountant MD Dr. Lyons. And a note not to give narcotics posted in patients room for all staff to see. No new orders from reconciliation accountant for now and will address concerns to day team.
[2023-01-21 04:00] VITALS: BP 154/81
[2023-01-21] MEDS: QUETIAPINE FUMARATE 25 MG TABLET PO SCH ×4 (05:21→23:30)
--- NOTE | 2023-01-21 06:08 | NUR ---
MS RN CLOSING NOTES; PATIENT SLEEP IN BED COMFORTABLY, ACCOMPANIED BY FAMILY, AROUSABLE TO VERBAL STIMULI, BED IN LOW POSITION CALL LIGHT WITHIN REACH, NO COMPLAIN OF PAIN AND DISCOMFORT AT THIS TIME, ON ROOM AIR SATURATING WELL, NO SOB WAS OBSERVED, IV LINE AT CARLOS ML#18 WITH ONGOING D5 1/2 NSS@75ML/HR INFUSING WELL, PATIENT ON BILATERAL SOFT WRIST RESTRAINT, WEEKLY PICTURE UPDATING DONE, PATIENT KEPT CLEAN AND DRY ALL NEEDS MET ENDORSE TO INCOMING SHIFT.
--- NOTE | 2023-01-21 07:12 | NUR ---
LOG DECK TENDER OPENING NOTE: PT IS ALERT AND ORIENTED X1 WITH PERIODS OF CONFUSION. PT ASLEEP AT THIS TIME.EASILY AROUSABLE. FAMILY AT BEDSIDE.NO S/S OF PAIN OR DISCOMFORT AT THIS TIME. L UPPER ARM MIDLINE, IV INTACT, PATENT AND FLUSHING WELL. RESTRAINTS OFF AT THIS TIME DUE TO FAMILY BEING PRESENT AT THIS TIME. PT IS COMFORT MEASURES ONLY. ALL SAFETY MEASURES IN PLACE. CALL LIGHT WITHIN REACH. BED LOCKED AT LOWEST POSITION.SIDE RAILS UP X2. BED ALARM ON.
[2023-01-21] MEDS: BLOOD SUGAR DIAGNOSTIC 1 EACH STRIP VI SCH ×4 (07:52→21:38)
[2023-01-21 08:00] VITALS: BP 165/145
[2023-01-21] MEDS: IBUPROFEN 400 MG TABLET PO PRN (08:13)
[2023-01-21] MEDS: hydrALAZINE HCL IV 20 MG VIAL IV PRN ×2 (08:13→20:06)
[2023-01-21] MEDS: PANTOPRAZOLE 40 MG/PACK PACK PO SCH (09:00)
[2023-01-21] MEDS: METOPROLOL TARTRATE 25 MG TABLET PO SCH ×2 (09:00→20:18)
[2023-01-21] MEDS: LOSARTAN/HCTZ 50-12.5MG/ 1 EA TABLET PO SCH (09:00)
--- NOTE | 2023-01-21 09:16 | NUR ---
RN NOTE PT NOTED TO BE LETHARGIC AT THIS TIME. NOTIFIED IF OKAY TO HOLD AT THIS TIME. SAID OKAY TO HOLD
[2023-01-21] MEDS: CYANOCOBALAMIN 1,000 MCG/ML VIAL IM SCH (10:40)
[2023-01-21] MEDS: HYDROCORTISONE 0.5% CREAM 28.35 GM TUBE TP SCH ×2 (10:58→18:26)
[2023-01-21] MEDS: IV D5/0.45 NACL 1,000 ML IV PRN (11:46)
--- NOTE | 2023-01-21 12:35 | NUR ---
RN NOTE BS 150, PT NPO AND HAS POOR APPETITE
[2023-01-21] MEDS ORDERED: HALOPERIDOL LACTATE INJ 5 MG/ML VIAL IM PRN (14:00)
[2023-01-21 16:00] VITALS: BP 105/57
--- NOTE | 2023-01-21 18:30 | NUR ---
RN NOTE NO INSULIN COVERAGE DUE TO PT BEING NPO AND POOR APPETITE. MD AWARE
--- NOTE | 2023-01-21 19:30 | NUR ---
MS RN OPENING NOTE RECEIVED PATIENT IN BED, ASLEEP. DAUGHTER AND CAREGIVER AT BEDSIDE. CURRENTLY ON RA, TOLERATING WELL, SATING @ 97%. NO S/SX OF ACUTE RESPI DISTRESS NOTED AT THIS TIME. NO SOB. BREATHING IS EVEN AND UNLABORED. IV LINE AT LEFT HAND #22g, PATENT, INTACT AND FLUSHING WELL WITH ONGOING D5 1/2 NS RUNNING @75 ML//HR. ON BILATERAL SOFT WRIST RESTRAINTS, NO CIRCULATION AND SKIN ISSUES UPON ASSESSMENT. ALL SAFETY MEASURES IN PLACE: BED LOCKED IN LOW POSITION, BED ALARM ON, HOB ELEVATED, CALL LIGHT WITHIN REACH. WILL CONTINUE TO MONITOR PT.
--- NOTE | 2023-01-21 19:57 | NUR ---
MS RN CLOSING NOTE PT IS ALERT AND ORIENTED X1 WITH PERIODS OF CONFUSION. PT ASLEEP AT THIS TIME.EASILY AROUSABLE. FAMILY AND CAREGIVER AT BEDSIDE.NO S/S OF PAIN OR DISCOMFORT AT THIS TIME. L UPPER ARM MIDLINE, IV INTACT, PATENT AND FLUSHING WELL. RESTRAINTS OFF AT THIS TIME DUE TO FAMILY BEING PRESENT AT THIS TIME. ALL SAFETY MEASURES IN PLACE. CALL LIGHT WITHIN REACH. BED LOCKED AT LOWEST POSITION.SIDE RAILS UP X2. BED ALARM ON.ENDORSED TO RISK MGR RN FOR CONTUITY OF CARE
[2023-01-21 20:00] VITALS: BP 164/60
[2023-01-21] MEDS: *INSULIN REGULAR(HUMULIN R)HUM 100 UNIT/ML VIAL SQ PRN (21:43)
[2023-01-22] MEDS: IV D5/0.45 NACL 1,000 ML IV PRN ×2 (01:25→16:35)
--- NOTE | 2023-01-22 03:26 | NUR ---
RN NOTE SPOKE WITH DAUGHTER DIETER OVER THE PHONE. UPDATE GIVEN.
[2023-01-22 04:00] VITALS: BP 171/76
[2023-01-22] MEDS: QUETIAPINE FUMARATE 25 MG TABLET PO SCH ×4 (05:11→22:49)
[2023-01-22] MEDS: hydrALAZINE HCL IV 20 MG VIAL IV PRN ×2 (05:17→09:33)
--- NOTE | 2023-01-22 05:20 | NUR ---
RN NOTE PT NOTED TO HAVE HIGH BP WITH SPB > 150. HYDRALAZINE IV GIVEN ORDERED.
--- NOTE | 2023-01-22 07:00 | NUR ---
RECEIVED REPORT ON PATIENT FROM [employer] SANDRA MEZA. PATIENT IN BED, DAUGHTER AT THE BEDSIDE. REPORTS OF PAIN, BUT FAMILY REFUSING IVP MORPHINE ADMINISTRATION IN FAVOR OF PO NORCO. EXPLAINED TO FAMILY THAT DUE TO FAILED SWALLOW EVALUATION, PATIENT MUST REMAIN NPO. FULL LIQUID DIET ORIGINALLY ORDERED, CHANGE ORDER TO NPO. IV ACCESS' MAINTAINED, PRIMARY IV LINE HANGING WITHOUT EXPIRATION LABEL. WILL CHANGE LINE AND PLACE LABEL. SAFETY MEASURES IMPLEMENTED. WILL CONTINUE PLAN OF CARE AND ANTICIPATE NEEDS.
[2023-01-22] MEDS: BLOOD SUGAR DIAGNOSTIC 1 EACH STRIP VI SCH ×4 (07:40→21:29)
[2023-01-22] MEDS: LOSARTAN/HCTZ 50-12.5MG/ 1 EA TABLET PO SCH (08:13)
[2023-01-22] MEDS: METOPROLOL TARTRATE 25 MG TABLET PO SCH ×2 (08:13→20:39)
[2023-01-22] MEDS: *INSULIN REGULAR(HUMULIN R)HUM 100 UNIT/ML VIAL SQ PRN (09:00)
[2023-01-22] MEDS: HYDROCORTISONE 0.5% CREAM 28.35 GM TUBE TP SCH ×2 (09:08→16:20)
[2023-01-22] MEDS: CYANOCOBALAMIN 1,000 MCG/ML VIAL IM SCH (09:08)
[2023-01-22] MEDS: INSULIN REGULAR, HUMAN 100 UNIT/ML 3 ML VIAL SQ PRN (11:40)
--- NOTE | 2023-01-22 11:45 | NUR ---
PATIENT SPEAKING TO HIMSELF. STATING "I DON'T WANT TO BE HERE ANY MORE" AND "GOD YOU PROMISED ME A HAPPY , NOT THIS". WILL INCREASE FREQUENCY OF ROUNDING TO INSURE PATIENT SAFETY. PATIENT REMAINS IN RESTRAINTS, FAMILY AND PRIVATELY HIRED PREPRESS STRIPPER AT BEDSIDE.
--- NOTE | 2023-01-22 12:14 | NUR ---
FOLLOWED UP WITH FAMILY REGARDING IVP PAIN MEDICATIONS. PER DPOA, PATIENT IS OKAY TO RECEIVE IVP MORPHINE ORDERED.
[2023-01-22] MEDS: MORPHINE SULFATE INJ 2 MG/ML DISP.SYRIN IV PRN (14:46)
[2023-01-22 16:00] VITALS: BP 130/57
--- NOTE | 2023-01-22 16:21 | NUR ---
PATIENT MOVING AROUND IN BED, NOT FOLLOWING COMMANDS, CURSING STAFF AND NOT COOPERATING WITH CARE. PRN HALDOL ADMINISTERED IM. WILL CONTINUE TO ASSESS.
--- NOTE | 2023-01-22 18:40 | NUR ---
PATIENT REMAINS IN STABLE CONDITION. NON ADMIN FOR ALL PO MEDICATIONS DUE TO FAILED SWALLOW EVAL. FAMILY AT BEDSIDE, ALONG WITH PRIVATELY HIRED OSCILLOGRAPH TECHNICIAN. WILL ENDORSE TO NIGHTSHIFT RN FOR CONTINUATION OF CARE.
--- NOTE | 2023-01-22 19:30 | NUR ---
MS RN OPENING NOTE RECEIVED PATIENT IN BED, AWAKE, WITH DAUGHTER AND PRIVATE CAREGIVER AT BEDSIDE. AFEBRILE AND NOT IN ANY FORM OF ACUTE DISTRESS. BREATHING EVEN AND NON LABORED. WITH IV ACCESS ON CARLOS MIDLINE RUNNING WITH D5 1/2NS AT 75ML/HR. ON BILATERAL SOFT WRIST RESTRAINTS, NOTED WITH INTACT SKIN AND GOOD CIRCULATION. MAINTAINED ON NPO ORDERED. SAFETY MEASURES IN PLACE. KEPT BED IN LOCKED AND IN LOW POSITION. SIDE RAILS UP X2. ADVISED TO USE THE CALL LIGHT WHEN IN NEED OF ASSISTANCE.
[2023-01-22 20:00] VITALS: BP 105/66
--- NOTE | 2023-01-22 22:49 | NUR ---
MS RN NOTE PATIENT MAINTAINED ON NPO ORDERED INCLUDING ORAL MEDS SINCE PATIENT FAILED SWALLOW EVAL.
[2023-01-23 04:00] VITALS: BP 142/73
[2023-01-23] MEDS: QUETIAPINE FUMARATE 25 MG TABLET PO SCH ×4 (05:21→23:30)
[2023-01-23] MEDS: IV D5/0.45 NACL 1,000 ML IV PRN ×2 (06:23→16:58)
--- NOTE | 2023-01-23 06:30 | NUR ---
MS RN CLOSING NOTE PATIENT IN BED, ASLEEP BUT EASY TO AROUSE AND RESPONSIVE, WITH DAUGHTER AND PRIVATE CAREGIVER AT BEDSIDE. AFEBRILE AND NOT IN ANY FORM OF ACUTE DISTRESS. BREATHING EVEN AND NON LABORED. WITH IV ACCESS ON CARLOS MIDLINE RUNNING WITH D5 1/2NS AT 75ML/HR. ON BILATERAL SOFT WRIST RESTRAINTS, NOTED WITH INTACT SKIN AND GOOD CIRCULATION. MAINTAINED ON NPO ORDERED. MONITORED FOR ANY S/SX. OF HYPO/HYPERGLYCEMIA. TURNED AND REPOSITIONED EVERY 2 HOURS AND TOLERATED TO PROMOTE PROPER CIRCULATION AND COMFORT. SAFETY MEASURES IN PLACE. KEPT BED IN LOCKED AND IN LOW POSITION. SIDE RAILS UP X2. ADVISED TO USE THE CALL LIGHT WHEN IN NEED OF ASSISTANCE. ALL NURSING NEEDS ATTENDED. ENDORSED TO INCOMING SHIFT FOR CONTINUITY OF CARE.
[2023-01-23] MEDS: BLOOD SUGAR DIAGNOSTIC 1 EACH STRIP VI SCH ×4 (06:31→22:05)
--- NOTE | 2023-01-23 07:57 | NUR ---
RN OPENING NOTE RECEIVED PATIENT IN BED, AO X 1, CONFUSED, COMBATIVE OCCATONALLY. ABLE TO RESPONDS ALL PHYSICAL STIMULI. RESPIRATORY EVEN AND UNLABORED IN ROOM AIR, IN NO ACUTE RESPIRATORY DISTRESS OBSERVED. SKIN IS WARM TO TOUCH, KEEP CLEAN/DRY. KEPT ELEVATED HOB FOR ASPIRATION PRECAUTION AND ENSURE AIRWAY, ALSO LOWEST BED POSITIONED. BED ALARM IS ON AT ALL TIMES FOR SAFETY. CALL LIGHT WITHIN REACH, WILL CONTINUE TO MONITOR.
[2023-01-23] MEDS: CYANOCOBALAMIN 1,000 MCG/ML VIAL IM SCH (08:31)
[2023-01-23] MEDS: hydrALAZINE HCL IV 20 MG VIAL IV PRN (08:38)
[2023-01-23] MEDS: HYDROCORTISONE 0.5% CREAM 28.35 GM TUBE TP SCH (08:39)
[2023-01-23] MEDS: LOSARTAN/HCTZ 50-12.5MG/ 1 EA TABLET PO SCH (08:42)
[2023-01-23] MEDS: METOPROLOL TARTRATE 25 MG TABLET PO SCH ×2 (08:42→21:00)
--- NOTE | 2023-01-23 12:26 | NUR ---
Seroquel will hold at tjis time due to patient NPO. LADLE REPAIRER/Alem made aware.
[2023-01-23 16:00] VITALS: BP 141/64
[2023-01-23] MEDS: HYDROCORTISONE 2.5% CREAM 28.4 GM TUBE TP SCH (16:53)
[2023-01-23] MEDS: INSULIN REGULAR, HUMAN 100 UNIT/ML 3 ML VIAL SQ PRN (16:56)
--- NOTE | 2023-01-23 18:00 | NUR ---
RN CLOSING NOTE PATIENT RESTING IN BED. IN NO ACUTE DISTRESS OBSERVED. RESPIRATORY EVEN AND UNLABORED IN ROM AIR. SKIN IS WARM TO TOUCH KEEP CLEAN/DRY. KEPT ELEVATED HOB FOR ENSURE AIRWAY/ASPIRATION PRECAUTION, AND LOWEST BED POSITION. BED ALARM IS ON ALL TIMES FOR SAFETY. CALL LIGHT WITHIN REACH, WILL ENDORSE VENDING SUPERVISOR.
--- NOTE | 2023-01-23 20:16 | NUR ---
RN MS OPENING NOTES RECEIVED PATIENT IN BED, A/O X 1 CONFUSED AND COMBATIVE AT TIME, WITH ANNUAL GIVING MANAGER AT BEDSIDE ON MODERATE HIGH BACK REST POSITION. PATIENT IS ON BEDREST FOR NOW. ON ROOM AIR SATURATING WELL NO SOB/ NOTED AT THIS TIME. INCONTINENT USES DIAPER, PATIENT IS STRICT NPO STILL FOR SWALLOW EVALUATION. WITH IV ACCESS AT CARLOS MIDLINE WITH D5 1/ NS AT 75ML/HR NO SWELLING OR INFILTRATION NOTED AT THIS TIME. FOR BLOOD SUGAR MONITORING. KEPT BED ON MODERATE HIGH BACK REST POSITION, KEPT SIDE RAILS UP X 2 ALL THE TIME, KEPT RESTRAINT, KEPT CALL LIGHT WITHIN AT REACH, SAFETY PRECAUTIONS MAINTAINED WILL CONTINUE TO MONITOR FOR FRANCO.
[2023-01-24] VITALS: BP 140/71
[2023-01-24] MEDS: IV D5/0.45 NACL 1,000 ML IV PRN ×2 (05:17→18:26)
[2023-01-24] MEDS: QUETIAPINE FUMARATE 25 MG TABLET PO SCH ×4 (05:30→23:30)
--- NOTE | 2023-01-24 06:44 | NUR ---
RN MS CLOSING NOTES PATIENT IS IN BED, A/O X 1 CONFUSED AND COMBATIVE AT TIME, WITH PROFESSOR OF FOREST PLANNING AT BEDSIDE ON MODERATE HIGH BACK REST POSITION. PATIENT IS ON BEDREST FOR NOW. ON ROOM AIR SATURATING WELL NO SOB/ NOTED AT THIS TIME. INCONTINENT USES DIAPER, PATIENT IS STRICT NPO STILL FOR SWALLOW EVALUATION. WITH IV ACCESS AT CARLOS MIDLINE WITH D5 1/ NS AT 75ML/HR NO SWELLING OR INFILTRATION NOTED AT THIS TIME. FOR BLOOD SUGAR MONITORING. PM CARE RENDERED,ORAL CARE DONE FAMILY REQUESTED TO DO ORAL CARE EVERY SHIFT, KEPT BED ON MODERATE HIGH BACK REST POSITION, KEPT SIDE RAILS UP X 2 ALL THE TIME, KEPT RESTRAINT, KEPT CALL LIGHT WITHIN AT REACH, SAFETY PRECAUTIONS MAINTAINED. ALL NEEDS ATTENDED, SUCTION SECRETIONS NEEDED. WILL ENDORSED TO NEXT SHIFT FOR FRANCO.
--- NOTE | 2023-01-24 07:30 | NUR ---
RN MS OPENING NOTES PATIENT IS IN BED, A/O X 1 CONFUSED AND COMBATIVE AT TIME, WITH SUBSTANCE ABUSE SPECIALIST AND DAUGHTER AT BEDSIDE. PATIENT IS ON BEDREST FOR NOW. ON ROOM AIR SATURATING WELL NO SOB NOTED AT THIS TIME. INCONTINENT USES DIAPER, PATIENT IS STRICT NPO STILL FOR SWALLOW EVALUATION. WITH IV ACCESS AT CARLOS MIDLINE WITH D5 1/ NS AT 75ML/HR NO SWELLING OR INFILTRATION NOTED AT THIS TIME. FOR BLOOD SUGAR MONITORING. KEPT SIDE RAILS UP X 2 ALL THE TIME. WRIST RESTRAINT IS ONE, SKIN AND CIRCULATION CHECK. KEPT CALL LIGHT WITHIN AT REACH, SAFETY PRECAUTIONS MAINTAINED. PLAN OF CARE CONTINUE.
[2023-01-24 08:00] VITALS: BP 134/76
[2023-01-24] MEDS: BLOOD SUGAR DIAGNOSTIC 1 EACH STRIP VI SCH ×4 (08:10→22:12)
[2023-01-24] MEDS: HYDROCORTISONE 2.5% CREAM 28.4 GM TUBE TP SCH ×2 (08:19→16:17)
[2023-01-24] MEDS: METOPROLOL TARTRATE 25 MG TABLET PO SCH ×2 (08:50→21:00)
[2023-01-24] MEDS: LOSARTAN/HCTZ 50-12.5MG/ 1 EA TABLET PO SCH (08:50)
--- NOTE | 2023-01-24 09:00 | NUR ---
MEDICATIONS UNABLE TO GIVE DUE TO PATIENT UNABLE TO SWALLOW, DUE TO PATIENT UNABLE TO FOLLOW COMMANDS.
--- NOTE | 2023-01-24 13:00 | NUR ---
ORAL CARE RENDERED. SEEN BY
[2023-01-24 16:00] VITALS: BP 138/76
[2023-01-24] MEDS: INSULIN REGULAR, HUMAN 100 UNIT/ML 3 ML VIAL SQ PRN ×3 (16:37→22:19)
--- NOTE | 2023-01-24 18:33 | NUR ---
RN MS CLOSING NOTES PATIENT IS IN BED SLEEPING, EASILY AWAKEN, A/O X 1 CONFUSED AND COMBATIVE AT TIME, WITH IN SERVICE EDUCATION TEACHER AND DAUGHTER AT BEDSIDE. ON ROOM AIR SATURATING WELL NO SOB NOTED AT THIS TIME. INCONTINENT WITH CONDOM CATH IN PLACE WITH CLEAR YELLOW URINE. PATIENT IS STRICT NPO STILL FOR SWALLOW EVALUATION. WITH IV ACCESS AT CARLOS MIDLINE WITH D5 1/ NS AT 75ML/HR, MIDLINE PATENT AND INTACT, FLUSHES WELL, NO SWELLING OR INFILTRATION NOTED AT THIS TIME. KEPT SIDE RAILS UP X 2 ALL THE TIME. WRIST RESTRAINT IS ON, SKIN AND CIRCULATION CHECK. KEPT CALL LIGHT WITHIN AT REACH, SAFETY PRECAUTIONS MAINTAINED. WILL ENDORSE TO NIGHT NURSE FOR FRANCO.
--- NOTE | 2023-01-24 19:00 | NUR ---
RN OPENING NOTE RECEIVED PT AWAKE IN BED WITH DAUGHTER CHELY AND CAREGIVER RJ ON BEDSIDE. PT IS IS A/O X 1. PT IS IN RA, TOLERATING WELL, BREATHING EVEN AND UNLABORED @ THIS TIME. PT IV PRESENT ON LEFT UPPER ARM MIDLINE RUNNING d5 1/2 NS @ 75 MLS/HR, PATENT, INTACT AND FLUSHES WELL W/ NO S&SX OF INFILTRATION @ SITE NOTED. PT CONDOM CATHETER IN PLACE DRAINING YELLOW COLORED URINE. SAFETY MEASURES IS IN PLACE. BED IN LOWEST AND LOCKED POSITION. SIDE RAILS UP X 4. BEDSIDE TABLE AND CALL LIGHT IS WITHIN REACH. BED ALARM IS ON. WILL CONTINUE TO MONITOR PT ACCORDINGLY.
--- NOTE | 2023-01-24 21:00 | NUR ---
HELD LOPRESSOR TAB. D/T PT NPO.
--- NOTE | 2023-01-24 22:23 | NUR ---
HELD PT'S INSULIN REGULAR D/T PT IS NPO. GLUCOSE IS 150. CHARGE NURSE IS MADE AWARE. WILL CONTINUE TO MONITOR PT.
--- NOTE | 2023-01-24 23:36 | NUR ---
HELD SERODAMARIL TAB D/T PT IS IN NPO. WILL CONTINUE TO MONITOR.
[2023-01-25] VITALS: BP 150/75
[2023-01-25] MEDS: QUETIAPINE FUMARATE 25 MG TABLET PO SCH ×4 (05:19→23:30)
--- NOTE | 2023-01-25 05:20 | NUR ---
HELD SEROQUEL TAB D/T PT IS NPO.
--- NOTE | 2023-01-25 07:15 | NUR ---
NUCLEAR PLANT EQUIPMENT OPERATOR OPENING NOTES Received pt awake in bed AOX1 with episodes of confusion. No signs of pain or discomfort at this time. Pt is currently on RA and tolerating it well. IV access on CARLOS midline running D5 1/2 NS @75 cc/hr. Family and caregiver at bedside at all times. HOB elevated to 30-45 degrees. Siderails up at all times x4. Call light within reach. Will continue to monitor.
--- NOTE | 2023-01-25 07:37 | NUR ---
RN CLOSING NOTE PT AWAKE & RESTING COMFORTABLY IN BED WITH CAREGIVER RJ ON BEDSIDE. PT IS A/O X 1. PT IS IN RA, W/ NO S & SX OF RESPIRATORY DISTRESS @ THIS TIME. PT IV PRESENT ON LEFT UPPER ARM MIDLINE RUNNING d5 1/2 NS @ 75 MLS/HR, PATENT, INTACT AND FLUSHES WELL W/ NO S &SX OF INFILTRATION @ SITE NOTED. PT CONDOM CATHETER IN PLACE DRAINING YELLOW COLORED URINE. PT DIAPER CHANGED x 1 PT KEPT CLEAN AND DRY. ADMINISTERED MEDICATION ACCORDINGLY PER MD'S ORDER. SAFETY MEASURES IS IN PLACE. BED IN LOWEST AND LOCKED POSITION. SIDERAILS UP X 4. BEDSIDE TABLE AND CALL LIGHT IS WITHIN REACH. BED ALARM IS ON.WILL ENDORSE TO THE NEXT SHIFT FOR FRANCO.
[2023-01-25] MEDS: BLOOD SUGAR DIAGNOSTIC 1 EACH STRIP VI SCH ×4 (07:45→22:04)
--- NOTE | 2023-01-25 07:48 | NUR ---
PRODUCT SUPPORT ENGINEER NOTES Blood sugar checked as ordered and was 152. No insulin given d/t pt NPO. CN made aware.
[2023-01-25] MEDS: IV D5/0.45 NACL 1,000 ML IV PRN ×2 (07:52→21:27)
[2023-01-25 08:00] VITALS: BP 128/78
[2023-01-25] MEDS: LOSARTAN/HCTZ 50-12.5MG/ 1 EA TABLET PO SCH (08:58)
[2023-01-25] MEDS: HYDROCORTISONE 2.5% CREAM 28.4 GM TUBE TP SCH ×2 (08:58→16:05)
[2023-01-25] MEDS: METOPROLOL TARTRATE 25 MG TABLET PO SCH ×2 (08:58→20:56)
--- NOTE | 2023-01-25 08:59 | NUR ---
BRAULIO NOTES All due routine medication at 0900 held d/t pt not being able to swallow pending ST evfrancesca. Addendum: 01/25/23 at 0901 by MARVIN FIELD LVN Pt on NPO until further notice.
--- NOTE | 2023-01-25 10:53 | NUR ---
PLEATING SUPERVISOR NOTES Seroquel 6.25mg held d/t pt NPO pending ST eval.
--- NOTE | 2023-01-25 11:05 | NUR ---
MACHINE SET UP OPERATOR NOTES Blood sugar checked and was 145. Insulin held d/t pt NPO. CN aware.
[2023-01-25 16:00] VITALS: BP 148/80
--- NOTE | 2023-01-25 16:58 | NUR ---
QUANTITATIVE RESEARCHER NOTES Blood sugar is at 144. Insulin not given d/t pt NPO. CN aware.
--- NOTE | 2023-01-25 18:52 | NUR ---
BUSINESS ARCHITECT CLOSING NOTES All due meds and tx given as ordered. Pt tolerated everything well. All needs attended to. Call light within reach. Will endorse to oncoming nurse.
[2023-01-25 20:00] VITALS: BP 143/62
--- NOTE | 2023-01-25 20:00 | NUR ---
MS RN NOTE PT IN BED AWAKE. A/O X 2, TALKATIVE. DTR AND TALENT SOLUTIONS MANAGER AT BED SIDE. PT IN NO DISTRESS OR DISCOMFORT AT THIS TIME. PT KEPT ON TALKING ABOUT DYING SOONER THE BETTER. DTR WAS TRYING TO TALKING TO HIM. PT DENIES PAIN. NO SOB NOTED. IVF D5 1/2 NS INFUSING AT 75 ML/HR, NO S/S OF INFILTRATION NOTED. KEPT HIM DRY AND CLEAN. ALL NEEDS ATTENDED. CALL LIGHT WITHIN REACH. VSS. CONTINUE TO MONITOR HIM.
[2023-01-26] VITALS: BP 143/62
[2023-01-26] MEDS: QUETIAPINE FUMARATE 25 MG TABLET PO SCH ×2 (04:28→11:30)
--- NOTE | 2023-01-26 06:45 | NUR ---
MS RN NOTE PT IN BED AWAKE. NO DISTRESS OR DISCOMFORT NOTED. DENIES PAIN. IVF D5 1/2 NS INFUSING AT 75 ML/HR, NO S/S OF INFILTRATION NOTED. KEPT HIM DRY AND CLEAN. PRIVATE TOOLS AND PARTS ATTENDANT AT BED SIDE. SIDE RAILS UP X 2 AND CALL LIGHT WITHIN REACH. WILL ENDORSE TO DAY SHIFT NURSE FOR CONTINUE TO CARE.
--- NOTE | 2023-01-26 07:40 | NUR ---
MS RN OPENING NOTE RECEIVED PT IN BED AWAKE, A/OX2 WITH EPISODES OF CONFUSION. FAMILY AND CAREGIVER AT BEDSIDE. ON RA WTH NO S/S OF SOB/ DISTRESS OR DISCOMFORT NOTED. DENIES PAIN. IV D5 1/2 NS INFUSING AT 75 ML/HR, NO S/S OF INFILTRATION NOTED. KEPT HIM DRY AND CLEAN. PRIVATE VETERINARY PRACTICE MANAGER AT BED SIDE. SIDE RAILS UP X 2 AND CALL LIGHT WITHIN REACH. WILL ENDORSE TO DAY SHIFT NURSE FOR CONTINUE TO CARE. Addendum: 01/26/23 at 1121 by CALISTA GUERRERO RN IV ACCESS AT CARLOS ML, RUNNING D5 1/2 NS @ 75ML/HR. WILL CONT WITH PLAN OF CARE DURING SHIFT.
[2023-01-26] MEDS: METOPROLOL TARTRATE 25 MG TABLET PO SCH ×2 (09:00→10:10)
[2023-01-26] MEDS: LOSARTAN/HCTZ 50-12.5MG/ 1 EA TABLET PO SCH ×2 (09:00→10:08)
[2023-01-26] MEDS: BLOOD SUGAR DIAGNOSTIC 1 EACH STRIP VI SCH ×2 (09:00→12:03)
[2023-01-26] MEDS: HYDROCORTISONE 2.5% CREAM 28.4 GM TUBE TP SCH (10:03)
--- NOTE | 2023-01-26 12:30 | NUR ---
RN NOTES: ATTEMPTED TO ADMINISTER AM AND PM PO MEDS IN FRONT OF HOSPICE STAFF TO ASSESS PT SWALLOWING ABILITY. RN FOLLOWED INSTRUCTIONS PER SPEECH THERAPIST, CRUSHED MEDS MIXED WITH APPLE SAUCE. RN GAVE HALF A TEASPOON OF APPLE SAUCE, PT STATES HE DOESN'T LIKE IT AND ASKED RN TO TAKE IT OUT. BP MEDS AND SEROQUEL NON ADMINISTERED, DISCARDED MEDS PER PROTOCOL WILL GIVE IV HYDRALAZINE PER MD ORDER FOR BP LEVEL
[2023-01-26 12:35] VITALS: BP 150/69
[2023-01-26] MEDS: hydrALAZINE HCL IV 20 MG VIAL IV PRN (12:35)
--- NOTE | 2023-01-26 13:00 | NUR ---
SANDRA NOTES: PT TRANSFERRED TO HOSPICE CARE, CM TO FACILITATE TRANSFER Addendum: 01/26/23 at 1328 by CALISTA GUERRERO RN BIOINFORMATICS SUPPORT SPECIALIST FACILITATED TRANSFER
== END 2023-01-26 13:15 | disposition hospice, inpatient (51) | DRG 280 ==
LOC: TELE1 01:27 → ICU 01-19 14:12 → MEDSG1 01-19 18:14
PROVIDERS: ADMIT Internal Medicine
PROC: 05H933Z Insertion of Infusion Device into Right Brachial Vein, Percutaneous Approach (ICD-10-PCS; principal; 2023-01-15)
PROC: 05HC33Z Insertion of Infusion Device into Left Basilic Vein, Percutaneous Approach (ICD-10-PCS; 2023-01-21)
DX: I11.0 Hypertensive heart disease with heart failure (principal); G93.41 Metabolic encephalopathy; I21.A1 Myocardial infarction type 2; I50.33 Acute on chronic diastolic (congestive) heart failure; I63.331 Cerebral infarction due to thrombosis of right posterior cerebral artery; I61.1 Nontraumatic intracerebral hemorrhage in hemisphere, cortical; F05 Delirium due to known physiological condition; I25.10 Atherosclerotic heart disease of native coronary artery without angina pectoris; D63.8 Anemia in other chronic diseases classified elsewhere; E11.9 Type 2 diabetes mellitus without complications; F39 Unspecified mood [affective] disorder; R41.9 Unspecified symptoms and signs involving cognitive functions and awareness; Z78.1 Physical restraint status; Z82.49 Family history of ischemic heart disease and other diseases of the circulatory system; Z85.46 Personal history of malignant neoplasm of prostate; Z91.148 Patient's other noncompliance with medication regimen for other reason; Z95.2 Presence of prosthetic heart valve; Z95.5 Presence of coronary angioplasty implant and graft
CPT/HCPCS: 36410; 36415; 70450-TC; 71045-TC; 73564-TC; 80048-TC; 80053-TC; 80061-TC; 82140-TC; 82607-TC; 82962-TC; 83735-TC; 84100-TC; 84443-TC; 84484-TC; 85025-TC; 85730-TC; 86850-TC; 92526; 92611-TC; 93307-TC; 97112-TC; 97530-TC; A4223; A4349; C9113; G0378; J0360; J1630; J1644; J1815; J2060; J2270; J3420; J3480; J3490; J7030; J7042

== ENCOUNTER 2023-01-26 13:03 | Inpatient (IN) | payer OTHER ==
[~2023-01-26] VITALS: Ht 175.3 cm; Wt 91.2 kg
[~2023-01-26 13:03] MED LIST: EZET10TA16 PO; LOSA1TAB39 PO; METF-440 PO; METO25TA3 PO; NITR0.4T48 SL
[2023-01-26] MEDS ORDERED: ENSURE ENLIVE 237 ML LIQUID (VANILLA) PO SCH (14:00)
[2023-01-26] MEDS: ENSURE ENLIVE 237 ML LIQUID (VANILLA) PO SCH ×2 (14:00→17:00)
[2023-01-27] MEDS: HALOPERIDOL LACTATE INJ 5 MG/ML VIAL IV PRN (03:15)
[2023-01-27 04:00] VITALS: BP 144/69
[2023-01-27] MEDS: MORPHINE SULFATE INJ 2 MG/ML DISP.SYRIN IV PRN (04:56)
[2023-01-27 08:00] VITALS: BP 138/75
[2023-01-27] MEDS: ENSURE ENLIVE 237 ML LIQUID (VANILLA) PO SCH ×2 (08:00→16:55)
[2023-01-27 16:00] VITALS: BP 139/119
[2023-01-28] VITALS: BP 152/76
[2023-01-28] MEDS: HALOPERIDOL LACTATE INJ 5 MG/ML VIAL IV PRN ×2 (02:23→20:26)
[2023-01-28 08:00] VITALS: BP 149/78
[2023-01-28] MEDS: ENSURE ENLIVE 237 ML LIQUID (VANILLA) PO SCH ×2 (08:00→17:04)
[2023-01-28 16:03] VITALS: BP 135/75
[2023-01-28 20:00] VITALS: BP 184/96
[2023-01-29] VITALS: BP 179/93
[2023-01-29] MEDS: MORPHINE SULFATE INJ 2 MG/ML DISP.SYRIN IV PRN ×2 (00:31→08:20)
[2023-01-29 04:00] VITALS: BP 161/51
[2023-01-29 08:00] VITALS: BP 198/82
[2023-01-29] MEDS: ENSURE ENLIVE CHOC 237 ML CAN PO SCH ×2 (08:00→17:00)
[2023-01-29] MEDS: ENSURE ENLIVE 237 ML LIQUID (VANILLA) PO SCH ×2 (08:49→17:06)
[2023-01-29] MEDS: QUETIAPINE FUMARATE 25 MG TABLET PO PRN (11:41)
[2023-01-29 16:00] VITALS: BP 165/75
[2023-01-30] VITALS: BP 165/75
[2023-01-30 08:00] VITALS: BP 147/96
[2023-01-30] MEDS: ENSURE ENLIVE 237 ML LIQUID (VANILLA) PO SCH ×2 (09:24→17:12)
[2023-01-30 16:00] VITALS: BP 155/112
[2023-01-30] MEDS ORDERED: KEY,NONCONTROL,TO KEEP IN PYXI 1 EA MC ONE (17:35)
[2023-01-31] VITALS: BP 140/95
[2023-01-31] MEDS: ENSURE ENLIVE 237 ML LIQUID (VANILLA) PO SCH ×2 (07:59→18:07)
[2023-01-31 08:00] VITALS: BP 136/65
[2023-01-31 16:00] VITALS: BP 136/65
[2023-01-31] MEDS: QUETIAPINE FUMARATE 25 MG TABLET PO PRN (18:12)
== END 2023-01-31 19:15 | disposition hospice, inpatient (51) | DRG 64 ==
LOC: HOSPICE1 13:03
DX: I63.331 Cerebral infarction due to thrombosis of right posterior cerebral artery (principal); G93.41 Metabolic encephalopathy; I21.4 Non-ST elevation (NSTEMI) myocardial infarction; I50.33 Acute on chronic diastolic (congestive) heart failure; I60.31 Nontraumatic subarachnoid hemorrhage from right posterior communicating artery; I11.0 Hypertensive heart disease with heart failure; Z51.5 Encounter for palliative care; Z66 Do not resuscitate; I25.10 Atherosclerotic heart disease of native coronary artery without angina pectoris; Z95.5 Presence of coronary angioplasty implant and graft; Z81.8 Family history of other mental and behavioral disorders; Z85.46 Personal history of malignant neoplasm of prostate; E11.9 Type 2 diabetes mellitus without complications; D63.8 Anemia in other chronic diseases classified elsewhere
CPT/HCPCS: 92526; 92611-TC; G0378; J1630; J2270